=== PATIENT | male | born 1995 | race Caucasian/White ===

== ENCOUNTER 2016-04-30 21:54 | Emergency (ER) | payer BC, OTHER ==
--- NOTE | 2016-04-30 22:25 | UC ---
UC General HPI - HPI Summary HPI Summary: The patient comes in today for: 1. Vomiting and diarrhea: Onset: Yesterday PM. Palliative/provocative: Nothing makes his vomiting or diarrhea better or worse. Quality: Nausea and a "crushing pain" of the abdomen. Region/radiation: just above the navel. Severity: 6/10 Time: Contstant, but it gets better or worse. Associated symptoms: Abdominal pain: Present. Fevers: None. Vomiting: In the last 24 hours, 50 times. Coffee ground material (-), and hematemesis: (-) Urination: 8:30 PM. Dark yellow. Diarrhea: 35 stools. No blood mucous or pus in the stool. Intestinal problems: Ulcerative colitis about 1-2 years ago. His female margie had the same thing yesterday, but she is better. 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 Endocrine History Of: Denies: Diabetes - s, Thyroid Disease, Hyperthyroidism, Hypothyroidism, Dyslipidemia Cardiovascular History Of: Reports: Hypertension Respiratory History Of: Denies: COPD, Asthma, Bronchitis, Pneumonia, Pulmonary Embolism GI/ History Of: Denies: Gastroesophageal Reflux, Ulcer, Gastrointestinal Bleed, Gall Bladder Disease, Kidney Stones, Diverticulitis, Renal Disease, Urosepsis Neurological History Of: Reports: Migraine Denies: TIA, CVA, Dementia, Seizures Psychological History Of: Reports: Anxiety, Depression Denies: Bipolar Disorder, Schizophrenia, Post Traumatic Stress Disorder Cancer History Of: Denies: Lung Cancer, Colorectal Cancer, Breast Cancer, Prostate Cancer, Cervical Cancer Other History Of: Negative For: HIV, Hepatitis B, Hepatitis C, Anticoagulant Therapy - Surgical History Surgical History: None - Family History Known Family History: Positive: Cardiac Disease, Hypertension Negative: Diabetes - Social History Occupation: Employed Full-time Alcohol Use: None Alcohol Amount: PT states sober for the last few weeks Substance Use Type: None Substance Use Comment - Amount & Last Used: last used 1.5 yrs ago Smoking Status (MU): Current Every Day Smoker Type: Cigarettes Amount Used/How Often: 1 PPD Length of Time of Smoking/Using Tobacco: 4-5 years Have You Smoked in the Last Year: Yes When Did the Patient Quit Smoking/Using Tobacco: quit 10/11/14 Household Exposure Type: Cigarettes - Immunization History Most Recent Influenza Vaccination: January 12, 2015 Most Recent Tetanus Shot: up to date per mother Most Recent Pneumonia Vaccination: none Vaccination Up to Date: Yes Review of Systems Constitutional: Negative Skin: Negative Eyes: Negative ENT: Negative Respiratory: Negative, Cough - Before vomiting. Cardiovascular: Negative Gastrointestinal: Abdominal Pain, Vomiting, Diarrhea Genitourinary: Negative All Other Systems Reviewed And Are Negative: Yes Physical Exam Triage Information Reviewed: Yes Appearance: No Pain Distress, Well-Nourished, Ill-Appearing - He will try to vomit several times while I was there. He grimaced occasionally. After the IV started though, he started smiling and getting more animated. Vital Signs: Initial Vital Signs Temp 98.7 F 04/30/16 22:09 Pulse 106 04/30/16 22:09 Resp 20 04/30/16 22:09 BP 128/71 04/30/16 22:09 Pulse Ox 99 04/30/16 22:09 Vital Signs Reviewed: Yes Eyes: Positive: Conjunctiva Clear. Negative: Discharge ENT: Positive: Hearing grossly normal. Negative: Pharyngeal erythema, Nasal congestion, Nasal drainage, TM bulging, TM dull, TM red, Tonsillar swelling, Tonsillar exudate Dental: Negative: Gross Decay/Caries @, Dental Fracture @ Neck: Positive: Supple, Nontender, No Lymphadenopathy. Negative: Nuchal Rigidity Respiratory: Positive: Chest non-tender, Lungs clear, No respiratory distress, No accessory muscle use. Negative: Crackles, Wheezing Cardiovascular: Positive: RRR, No Murmur Abdomen Description: Positive: No Organomegaly, Soft. Negative: Nontender - He has tenderness in the RUQ and the epigastric area before the IV. He had no rebound or consisten percussion tenderness., Distended, Guarding Musculoskeletal: Positive: Strength Intact, ROM Intact, No Edema Neurological: Positive: Alert, Muscle Tone Normal Psychological: Positive: Normal Response To Family, Age Appropriate Behavior, Consolable Skin: Negative: rashes, breakdown Re-Evaluation - Re-Evaluation First Eval Change: Improved - He states that his abdominal pain is improved 60% with the 1 liter hydration. And his nausea has improved 30%. He states that he wants to go home. Course/Dx - Course Course Of Treatment: IV 1000 ml D5NS at wide open and IV 50 mg of benadryl, ice chips. - Differential Dx - Multi-Symptom Provider Diagnoses: ABdominal pain. gastroenteritis Discharge - Discharge Plan Condition: Stable Disposition: HOME Patient Education Materials: Acute Abdominal Pain (ED), Gastroenteritis (ED), Dehydration (ED) Forms: *Work Release Referrals: Marija Munoz [Primary Care Provider] - (Please see your primary care provider in the next several days to see how well you are doing. If you get worse, please be seen sooner in the ER.)
[2016-04-30] MEDS ORDERED: diPHENhydraMINE IV* 50 MG/ML 1 ml VIAL (BENADRYL) SLOW PUSH ONE (22:38)
[2016-04-30] MEDS ORDERED: D5NS 0.9% 1000 ML BAG* 1,000 ML IV SCH (23:00)
[2016-04-30 23:14] VITALS: BP 133/64
[2016-04-30] MEDS ORDERED: hydrOXYzine HCL TAB* 25 MG PO ONE ×2 (23:17→23:21)
[2016-04-30] MEDS ORDERED: Acetaminophen TAB* 325 MG PO ONE (23:17)
[2016-04-30] MEDS ORDERED: Acetaminophen TAB* 325 MG ONE (23:25)
== END 2016-04-30 23:32 | disposition home or self-care (01) ==
LOC: UCEAST 21:54
DX: K52.9 Noninfective gastroenteritis and colitis, unspecified (principal); R10.11 Right upper quadrant pain; R10.13 Epigastric pain; Z88.1 Allergy status to other antibiotic agents; Z88.5 Allergy status to narcotic agent; Z88.0 Allergy status to penicillin; F17.210 Nicotine dependence, cigarettes, uncomplicated
CPT/HCPCS: 96360; 96361; 96374; 99213; A9270-GY; G0463; J1200

== ENCOUNTER 2016-05-05 21:13 | Emergency (ER) | payer BC, OTHER ==
--- NOTE | 2016-05-05 21:50 | UC ---
Abdominal Pain Male HPI - HPI Summary HPI Summary: The patient comes in today for: 1. Abdominal pain: Onset: 5 days ago. Palliative/provocative: He has no symptoms remaining at this time. Quality: No symptoms. Region: ABdomen Severity: 0/10 Time: REsolved. Associated symptoms: Event: The patient was in here at the [facility] for vomiting and diarrhea. He got a liter of D5NS and he felt better. He had muscular cramping and nausea. He was treated also with Zofran. He was better, but not completely better. He was sent home with a Tigan order for nausea. Now he wants a return to work note. He states that he feels normal with no symptoms. 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 - Allergies/Home Medications Allergies/Adverse Reactions: Allergies Allergy/AdvReac Type Severity Reaction Status Date / Time Haloperidol [From Haldol] Allergy Severe Dystonia Verified 04/30/16 22:12 Amoxicillin [From Augmentin] Allergy Intermediate Blisters Verified 04/30/16 22: 12 Clavulanic Acid Allergy Intermediate Blisters Verified 04/30/16 22:12 [From Augmentin] Tramadol AdvReac Severe See Comment Verified 04/30/16 22:12 PMH/Surg Hx/FS Hx/Imm Hx Endocrine History Of: Denies: Diabetes - s, Thyroid Disease, Hyperthyroidism, Hypothyroidism, Dyslipidemia Cardiovascular History Of: Reports: Hypertension Denies: Cardiac Disorders, Congestive Heart Failure Respiratory History Of: Denies: COPD, Asthma, Bronchitis, Pneumonia, Pulmonary Embolism GI/ History Of: Denies: Gastroesophageal Reflux, Ulcer, Gastrointestinal Bleed, Gall Bladder Disease, Kidney Stones, Diverticulitis, Renal Disease, Urosepsis Neurological History Of: Reports: Migraine Denies: TIA, CVA, Dementia, Seizures Psychological History Of: Reports: Anxiety, Depression Denies: Bipolar Disorder, Schizophrenia, Post Traumatic Stress Disorder Cancer History Of: Denies: Lung Cancer, Colorectal Cancer, Breast Cancer, Prostate Cancer, Cervical Cancer Other History Of: Negative For: HIV, Hepatitis B, Hepatitis C, Anticoagulant Therapy - Surgical History Surgical History: None - Family History Known Family History: Positive: Cardiac Disease, Hypertension Negative: Diabetes - Social History Alcohol Use: None Alcohol Amount: PT states sober for the last few weeks Substance Use Type: None Substance Use Comment - Amount & Last Used: last used 1.5 yrs ago Smoking Status (MU): Current Every Day Smoker Type: Cigarettes Amount Used/How Often: 1 PPD Length of Time of Smoking/Using Tobacco: 4-5 years Have You Smoked in the Last Year: Yes When Did the Patient Quit Smoking/Using Tobacco: quit 10/11/14 Household Exposure Type: Cigarettes - Immunization History Most Recent Influenza Vaccination: January 12, 2015 Most Recent Tetanus Shot: up to date per mother Most Recent Pneumonia Vaccination: none Vaccination Up to Date: Yes Review of Systems Constitutional: Negative Skin: Negative Eyes: Negative ENT: Negative Respiratory: Negative Cardiovascular: Negative Gastrointestinal: Negative Genitourinary: Negative Motor: Negative Neurovascular: Negative Musculoskeletal: Negative All Other Systems Reviewed And Are Negative: Yes Physical Exam Triage Information Reviewed: Yes Appearance: Well-Appearing, No Pain Distress, Well-Nourished Vital Signs Reviewed: Yes Eyes: Positive: Conjunctiva Clear. Negative: Discharge ENT: Positive: Hearing grossly normal. Negative: Pharyngeal erythema, Nasal congestion, Nasal drainage, TM bulging, TM dull, TM red, Tonsillar swelling, Tonsillar exudate Dental: Negative: Gross Decay/Caries @, Dental Fracture @ Neck: Positive: Supple, Nontender, No Lymphadenopathy. Negative: Nuchal Rigidity Respiratory: Positive: Lungs clear, No respiratory distress, No accessory muscle use. Negative: Rhonchi, Wheezing Cardiovascular: Positive: RRR, No Murmur Abdomen Description: Positive: Nontender, No Organomegaly, Soft. Negative: Guarding Musculoskeletal: Positive: Strength Intact, ROM Intact, No Edema Neurological: Positive: Alert, Muscle Tone Normal Psychological: Positive: Age Appropriate Behavior, Consolable Skin: Negative: rashes, breakdown Abd Pain Male Course/Dx - Differential Dx/Clinical Impression Provider Diagnoses: resolved gastroenteritis. Viral syndrome Discharge - Discharge Plan Condition: Stable Disposition: HOME Patient Education Materials: Gastroenteritis (ED) Referrals: Marija Munoz [Primary Care Provider] - If Needed (Please see your primary care provider as he or she has previously recommended. If you have any problems and can't get in timely, you can come back to see us.)
[2016-05-05 21:58] VITALS: BP 123/70
== END 2016-05-05 22:18 | disposition home or self-care (01) ==
LOC: UCEAST 21:13
DX: B34.9 Viral infection, unspecified (principal); Z88.1 Allergy status to other antibiotic agents; Z88.0 Allergy status to penicillin; Z88.8 Allergy status to other drugs, medicaments and biological substances; Z87.891 Personal history of nicotine dependence
CPT/HCPCS: 99211; G0463

== ENCOUNTER 2017-01-02 18:26 | Emergency (ER) | payer BC, OTHER ==
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
[2017-01-02 19:40] VITALS: BP 151/97
== END 2017-01-02 19:35 | disposition home or self-care (01) ==
LOC: UCEAST 18:26
DX: S20.219A Contusion of unspecified front wall of thorax, initial encounter (principal); Z88.1 Allergy status to other antibiotic agents; V49.9XXA Car occupant (driver) (passenger) injured in unspecified traffic accident, initial encounter; Y92.9 Unspecified place or not applicable
CPT/HCPCS: 99212; G0463

== ENCOUNTER 2017-02-12 12:07 | Emergency (ER) | payer BC, OTHER ==
[2017-02-12 12:29] VITALS: BP 121/77
[2017-02-12] MEDS ORDERED: Ondansetron ODT TAB* 4 MG PO ONE (13:33)
--- NOTE | 2017-02-12 13:43 | UC ---
UC General HPI - HPI Summary HPI Summary: Patient presents with complaints of epigastrium abdominal pain, nausea and diarrhea. He states his little sister has had the same thing. He states he had at least 15 episodes of vomiting and 4-5 episodes od diarrhea this morning. He states the v/d has slowed down. He also reports epigastrium pain that is non- radiating, and occurs with the vomiting. He denies any recorded fevers, chills, cough, sputum production, ear pain, sore throat. - History of Current Complaint Chief Complaint: UCAbdominalPain Stated Complaint: STOMACH PAIN C Time Seen by Provider: 02/12/17 13:22 Hx Obtained From: Patient Onset/Duration: Sudden Onset, Lasting Days Onset Severity: Moderate Current Severity: Moderate Associated Signs & Symptoms: Positive: Abdominal Pain, Diarrhea, Nausea, Vomiting - Allergy/Home Medications Allergies/Adverse Reactions: Allergies Allergy/AdvReac Type Severity Reaction Status Date / Time Haloperidol [From Haldol] Allergy Severe Dystonia Verified 02/12/17 12:29 Amoxicillin [From Augmentin] Allergy Intermediate Blisters Verified 02/12/17 12: 29 Clavulanic Acid Allergy Intermediate Blisters Verified 02/12/17 12:29 [From Augmentin] Tramadol AdvReac Severe See Comment Verified 02/12/17 12:29 PMH/Surg Hx/FS Hx/Imm Hx Previously Healthy: Yes Other History Of: Negative For: HIV, Hepatitis B, Hepatitis C, Anticoagulant Therapy - Surgical History Surgical History: None - Family History Known Family History: Positive: Cardiac Disease, Hypertension Negative: Diabetes - Social History Occupation: Employed Full-time Lives: With Family Alcohol Use: Occasionally Alcohol Amount: PT states sober for the last few weeks Substance Use Type: Prescribed Substance Use Comment - Amount & Last Used: last used 1.5 yrs ago Smoking Status (MU): Heavy Every Day Tobacco Smoker Type: Cigarettes Amount Used/How Often: 1 PPD Length of Time of Smoking/Using Tobacco: 4-5 years Have You Smoked in the Last Year: Yes When Did the Patient Quit Smoking/Using Tobacco: quit 10/11/14 Household Exposure Type: Cigarettes - Immunization History Most Recent Influenza Vaccination: January 12, 2015 Most Recent Tetanus Shot: up to date per mother Most Recent Pneumonia Vaccination: none Vaccination Up to Date: Yes Review of Systems Constitutional: Negative Skin: Negative Eyes: Negative ENT: Negative Respiratory: Negative Cardiovascular: Negative Gastrointestinal: Abdominal Pain, Vomiting, Diarrhea, Nausea Genitourinary: Negative Motor: Negative Neurovascular: Negative Musculoskeletal: Negative Neurological: Negative Psychological: Negative All Other Systems Reviewed And Are Negative: Yes Physical Exam Triage Information Reviewed: Yes Appearance: Ill-Appearing Vital Signs: Initial Vital Signs Temp 98.6 F 02/12/17 12:24 Pulse 119 02/12/17 12:24 Resp 16 02/12/17 12:24 BP 121/77 02/12/17 12:24 Pulse Ox 100 02/12/17 12:24 Eye Exam: Normal ENT Exam: Normal Neck exam: Normal Neck: Positive: 1 Respiratory Exam: Normal Cardiovascular Exam: Normal Abdominal Exam: Normal Musculoskeletal Exam: Normal Neurological Exam: Normal Psychological Exam: Normal Skin Exam: Normal Course/Dx - Course Course Of Treatment: Patient presents with sudden onset complaints of epigastrium abdominal pain, N/V/D. He has had ill contacts with his sister who had the same symptoms. He has actually stopped vomiting and has not had any further episodes of diarrhea. He had a benign examination without rebound, guarding, negative McBurneys and Murrfays sign. He was given Zofran in the department. I advised him that if his symtpoms return or if his abdomianl pain returns and/or localized he would need to go to the ER immediatlry. He vebalzied understanding and was in agreement of the discharge plan. - Differential Dx - Multi-Symptom Differential Diagnoses: Other - abdominal pain vomiting diarrhea Provider Diagnoses: abdominal pain. vomiting. diarrhea Discharge - Discharge Plan Condition: Stable Disposition: HOME Prescriptions: Ondansetron TAB* [Zofran 4 MG Tab*] 4 mg PO Q6H PRN #14 tab PRN Reason: Nausea Patient Education Materials: Acute Nausea and Vomiting (ED), Acute Diarrhea (ED ) Forms: *Work Release Referrals: Sofia Sampson MD [Primary Care Provider] -
== END 2017-02-12 13:39 | disposition home or self-care (01) ==
LOC: UCEAST 12:07
DX: R10.13 Epigastric pain (principal); R11.11 Vomiting without nausea; R19.7 Diarrhea, unspecified; Z72.0 Tobacco use; Z72.89 Other problems related to lifestyle
CPT/HCPCS: 99212; G0463